=== PATIENT | male | born 1960 | race Caucasian/White ===

== ENCOUNTER → 2016-11-08 | Outpatient (CLI) | payer MEDICAID ==
[~2016-11-08] MED LIST: ALBU6.7H4 IH; ALLO300T74 PO; ASPI-611 PO; DULO60CA25 PO; FLUT1DIS32 IH; GABA-338 PO; GLYB5TAB8 PO; HYDR-2164 PO; HYDR1TAB82 PO; LEVO75TA58 PO; MELO-31 PO; METF-206 PO; METO25TA27 PO; MULT-806 PO; NITR0.4T38 SL; QUIN10TA PO; ROPI1TAB2 PO; ROSU40TA8 PO
--- NOTE | 2016-11-08 10:55 | DI ---
EXAM: SHOULDER LEFT 2-3 VIEWS LOCATION OF DICTATION: [place] HISTORY: ITS.REASON: M25.512 ACUTE PAIN OF LEFT SHOULDER COMPARISON: No prior studies available for comparison. FINDINGS: Normal alignment of the glenohumeral and acromioclavicular joints without dislocation or subluxation. There is normal osseous mineralization. There are no acute fractures demonstrated. There is mild to moderate osteoarthrosis of the glenohumeral and the chromic clavicular joints. Several subchondral cystic changes are noted about the humeral head. The surrounding soft tissues are within normal limits. The visible lung field is clear. IMPRESSION: 1. No evidence for malalignment or acute fracture. 1. Mild to moderate osteoarthrosis about the left glenohumeral and acromioclavicular joints. .
== END ==
LOC: IMA 10:08
PROVIDERS: ATTEND Registered Nurse
DX: M19.012 Primary osteoarthritis, left shoulder (principal); M25.512 Pain in left shoulder